=== PATIENT | male | born 1950 | race Caucasian/White ===

== ENCOUNTER 2016-09-03 17:38 | Emergency (ER) | payer BC, MEDICARE ==
[2016-09-03] MEDS ORDERED: Lidocaine 2% Viscous Solution 15 ML Cup PO ONE (17:44)
[2016-09-03 17:48] VITALS: BP 148/92
--- NOTE | 2016-09-03 18:21 | EDM.PDOC ---
ED HPI GENERAL MEDICAL PROBLEM - General Chief Complaint: Laceration Stated Complaint: abrasion to left pinky Time Seen by Provider: 09/03/16 17:38 - History of Present Illness INITIAL COMMENTS - FREE TEXT/NARRATIVE: Patient present with a crinder injury of an already amputated fifth finger nub of the left hand. Onset: Today, Sudden Duration: Minutes: Location: Reports: Lower Extremity, Left Quality: Reports: Burning Severity: Moderate - Related Data Allergies Allergy/AdvReac Type Severity Reaction Status Date / Time No Known Allergies Allergy Verified 09/03/16 17:50 Home Meds: Home Meds Celecoxib [CeleBREX] 200 mg PO DAILY 05/12/13 [History] DULoxetine [Cymbalta] 60 mg PO DAILY 05/12/13 [History] Omeprazole [priLOSEC OTC] 20 mg PO DAILY PRN 05/12/13 [History] Pravastatin [Pravachol] 80 mg PO BEDTIME 08/30/14 [History] metFORMIN [Glucophage] 500 mg PO DAILY 08/30/14 [History] Tamsulosin HCl [Flomax] 0.4 mg PO DAILY 09/03/16 [History] Venlafaxine [Effexor XR] 150 mg PO DAILY 09/03/16 [History] Past Medical History Cardiovascular History: Reports: High Cholesterol Gastrointestinal History: Reports: GERD Genitourinary History: Reports: BPH Musculoskeletal History: Reports: Arthritis Neurological History: Reports: CVA, TIA Psychiatric History: Reports: Depression Endocrine/Metabolic History: Reports: Diabetes, Type II - Past Surgical History GI Surgical History: Reports: Cholecystectomy Other Musculoskeletal Surgeries/Procedures:: Finger tip amputation Social & Family History - Tobacco Use Smoking Status *Q: Never Smoker - Alcohol Use Days Per Week of Alcohol Use: 1 Number of Drinks Per Day: 0 Total Drinks Per Week: 0 - Recreational Drug Use Recreational Drug Use: No ED ROS GENERAL - Review of Systems Review Of Systems: ROS reveals no pertinent complaints other than HPI. ED EXAM, SKIN/RASH Exam: See Below Text/Narrative:: nub of 5th finger of left hand with deep abrasion noted. General Appearance: Alert, WD/WN Ears: Normal External Exam Nose: Normal Inspection Head: Atraumatic Neck: Normal Inspection Respiratory/Chest: No Respiratory Distress Cardiovascular: Normal Peripheral Pulses GI/Abdominal: Normal Bowel Sounds Rectal (Males) Exam: Normal Exam Back Exam: Normal Inspection Extremities: Normal Inspection Neurological: Alert Skin: Warm, Dry Front/Back Body Diagram: 1 - 5th finger left hand Course - Vital Signs Last Recorded V/S: Last Vital Signs Temp 97.0 F 09/03/16 17:45 Pulse 66 09/03/16 17:45 Resp 20 09/03/16 17:45 BP 148/92 H 09/03/16 17:45 Pulse Ox 97 09/03/16 17:45 - Orders/Labs/Meds Meds: Medications Discontinued Medications Generic Name Dose Route Start Last Admin Trade Name Martin PRN Reason Stop Dose Admin Lidocaine HCl 15 ml 09/03/16 17:44 09/03/16 17:52 Xylocaine 2% Viscous PO 09/03/16 17:45 15 ml ONETIME ONE Administration Departure - Departure Time of Disposition: 18:21 (hand and wound cleanded thoroughly removing all debre, wound dressed with xeroform guaze, telfa and coban. tolerated well with no complications. W0und care instruction given with verbal understanding demonstrated.) Disposition: Home, Self-Care 01 Condition: Good Clinical Impression: Abrasion - Discharge Information Instructions: Laceration Care, Adult, [id number] Forms: ED Department Discharge Additional Instructions: Keep wound clean, watch for signs of infection.
== END 2016-09-03 18:30 | disposition home or self-care (01) ==
LOC: CC.ED 17:38
DX: S60.417A Abrasion of left little finger, initial encounter (principal); M19.90 Unspecified osteoarthritis, unspecified site; E78.00 Pure hypercholesterolemia, unspecified; E11.9 Type 2 diabetes mellitus without complications; F32.9 Major depressive disorder, single episode, unspecified; Z79.899 Other long term (current) drug therapy; K21.9 Gastro-esophageal reflux disease without esophagitis; Z86.73 Personal history of transient ischemic attack (TIA), and cerebral infarction without residual deficits; Z90.49 Acquired absence of other specified parts of digestive tract; Z79.84 Long term (current) use of oral hypoglycemic drugs; W31.89XA Contact with other specified machinery, initial encounter
CPT/HCPCS: 99282; A9270

== ENCOUNTER → 2018-06-27 | Day surgery (SDC) | payer MEDICARE, BC ==
[~2018-06-27] MED LIST: Lactated Ringers 1,000 ML IV SCH; Propofol 200 MG/20 ML SDV IV ONE
[2018-06-27 09:40] VITALS: BP 150/83
--- NOTE | 2018-06-27 11:45 | OR ---
DATE OF OPERATION: 06/27/2018 PREOPERATIVE DIAGNOSIS: FAMILY HISTORY OF COLON CANCER. POSTOPERATIVE DIAGNOSIS: FAMILY HISTORY OF COLON CANCER. SURGEON: Robert Patino MD PROCEDURE: FULL-LENGTH COLONOSCOPY WITH FORCEPS POLYP REMOVAL X2. ANESTHESIA: MAC via LUBRICATOR GRANULATOR. COMPLICATIONS: None. SPECIMEN: Two small sessile polyps, less than 3 mm. FINDINGS: 1. Full-length colonoscopy. 2. [id number] sigmoid diverticulosis. 3. Sessile polyps x2, both less than 3 mm. RECOMMENDATIONS: Followup colonoscopy in 5 years. INDICATIONS: The patient had a brother who passed from colon cancer. He is due for a 5-year scope. DESCRIPTION OF PROCEDURE: The patient was prepped and draped, placed in the left lateral decubitus position. A lubricated Olympus colonoscope was inserted and easily advanced to the cecum. Direct visualization of the ileocecal valve and appendiceal orifice was accomplished. The bowel prep was fine. Upon withdrawal of the scope, just outside the cecal pouch, the patient had a small sessile polyp about 2 to 3 mm in size. It was removed in its entirety with 2 cold forceps biopsies. The rest of the ascending and transverse colon were benign. In the left colon, the patient had sigmoid diverticulosis extending all the way to the rectosigmoid junction, mild to moderate in severity, there was no inflammatory change. A 2nd small sessile polyp was found around 45 cm, also removed with 2 cold forceps biopsies in its entirety. No other polyps, masses, ulceration, or bleeding sites were seen. No vascular abnormalities. The rectal vault was benign. Retroflexion of scope showed no perianal lesions. Air was suctioned, scope removed without complication. CLIF/CASSI /[id number]
== END ==
LOC: CC.SDS 07:29
PROVIDERS: ATTEND Family Medicine
DX: Z12.11 Encounter for screening for malignant neoplasm of colon (principal); K57.30 Diverticulosis of large intestine without perforation or abscess without bleeding; K63.5 Polyp of colon; K21.9 Gastro-esophageal reflux disease without esophagitis; E11.9 Type 2 diabetes mellitus without complications; E78.00 Pure hypercholesterolemia, unspecified; F32.9 Major depressive disorder, single episode, unspecified; H35.00 Unspecified background retinopathy; M19.90 Unspecified osteoarthritis, unspecified site; N40.0 Benign prostatic hyperplasia without lower urinary tract symptoms; Z86.73 Personal history of transient ischemic attack (TIA), and cerebral infarction without residual deficits; Z80.0 Family history of malignant neoplasm of digestive organs; Z79.1 Long term (current) use of non-steroidal anti-inflammatories (NSAID); Z79.84 Long term (current) use of oral hypoglycemic drugs; Z79.899 Other long term (current) drug therapy
CPT/HCPCS: J2704; J7120

== ENCOUNTER 2019-01-27 06:50 | Emergency (ER) | payer MEDICARE, BC ==
[2019-01-27] MEDS ORDERED: fentaNYL 100 MCG/2 ML SDV IVPUSH ONE ×2 (07:26→08:20)
[2019-01-27] MEDS ORDERED: Ondansetron 4 MG/2 ML SDV IVPUSH PRN (07:40)
[2019-01-27] MEDS ORDERED: Iopamidol 755 Mg/ML 100 ML Bottle IVPUSH ONE (07:42)
[2019-01-27] MEDS ORDERED: Sodium Chloride 0.9% 1,000 ML IV SCH (07:45)
[2019-01-27 07:50] LABS: CHLORIDE,CL 106 mEq/L (98-106); SODIUM,NA 141 mEq/L (136-145)
[2019-01-27 08:20] VITALS: PULSE 65
[2019-01-27] MEDS ORDERED: Ketorolac 30 MG/ML SDV IVPUSH ONE (08:48)
--- NOTE | 2019-01-27 09:49 | EDM.PDOC ---
ED HPI GENERAL MEDICAL PROBLEM - General Chief Complaint: Abdominal Pain Stated Complaint: ABD PAIN Time Seen by Provider: 01/27/19 07:10 Source of Information: Reports: Patient History Limitations: Reports: No Limitations - History of Present Illness INITIAL COMMENTS - FREE TEXT/NARRATIVE: Erik is a 69 yo male who presents to the ED this morning, brought in by his son, with concerns of right lower quadrant abdominal pain. He states the pain started around 2:00am this morning and doesn't seem to let up. States he has been nauseated but no vomiting. Admits to eating a normal meal last night and didn't have any discomfort before going to bed. Was woke up to the pain. States he did have a normal bowel movement this morning. Denies any constipation or diarrhea. Admits to frequent urination but has been dealing with this for some time now. States he is on two medications for his prostate. He denies any fevers. No flank pain. Location: Reports: Abdomen Associated Symptoms: Reports: Nausea/Vomiting Right Lower Abdominal Pain Score (Numeric/FACES): 5 - Related Data Allergies Allergy/AdvReac Type Severity Reaction Status Date / Time No Known Allergies Allergy Verified 01/27/19 07:26 Home Meds: Home Meds Celecoxib [CeleBREX] 200 mg PO DAILY 05/12/13 [History] DULoxetine [Cymbalta] 60 mg PO DAILY 05/12/13 [History] Omeprazole [priLOSEC OTC] 20 mg PO DAILY PRN 05/12/13 [History] Pravastatin [Pravachol] 80 mg PO BEDTIME 08/30/14 [History] Tamsulosin HCl [Flomax] 0.4 mg PO DAILY 09/03/16 [History] Venlafaxine [Effexor XR] 150 mg PO DAILY 09/03/16 [History] metFORMIN [Glucophage XR] 750 mg PO DAILY 06/21/18 [History] Hydrocodone/Acetaminophen [Pledger 5-325 Tablet] 1 each PO Q4H PRN #20 tablet 05/13 [Rx] Ketorolac [Toradol] 10 mg PO TID PRN #15 tab 01/27/19 [Rx] Ondansetron [Zofran ODT] 4 mg PO Q6H PRN #12 tab.dis 01/27/19 [Rx] Past Medical History Cardiovascular History: Reports: High Cholesterol Gastrointestinal History: Reports: GERD Genitourinary History: Reports: BPH Musculoskeletal History: Reports: Arthritis Neurological History: Reports: CVA, TIA Psychiatric History: Reports: Depression Endocrine/Metabolic History: Reports: Diabetes, Type II - Past Surgical History GI Surgical History: Reports: Cholecystectomy Other Musculoskeletal Surgeries/Procedures:: Finger tip amputation Social & Family History - Tobacco Use Smoking Status *Q: Never Smoker - Caffeine Use Caffeine Use: Reports: Soda - Recreational Drug Use Recreational Drug Use: No ED ROS GENERAL - Review of Systems Review Of Systems: See Below Constitutional: Denies: Fever, Chills, Decreased Appetite HEENT: Reports: No Symptoms Respiratory: Reports: No Symptoms Cardiovascular: Reports: No Symptoms GI/Abdominal: Reports: Abdominal Pain (RLQ), Nausea. Denies: Bloody Stool, Constipation, Diarrhea, Vomiting : Denies: Flank Pain, Hematuria, Pain Musculoskeletal: Reports: No Symptoms Skin: Reports: No Symptoms Neurological: Reports: No Symptoms ED EXAM, GI/ABD - Physical Exam Exam: See Below Exam Limited By: No Limitations General Appearance: Alert, WD/WN, No Apparent Distress Ears: Normal External Exam, Normal Canal, Normal TMs Nose: Normal Inspection, Normal Mucosa, No Blood Throat/Mouth: Normal Inspection, Normal Lips, Normal Gums, Normal Oropharynx, No Airway Compromise Head: Atraumatic, Normocephalic Neck: Normal Inspection, Supple Respiratory/Chest: No Respiratory Distress, Lungs Clear, Normal Breath Sounds, No Accessory Muscle Use Cardiovascular: Regular Rate, Rhythm, No Edema, No Murmur GI/Abdominal Exam: No Organomegaly, Tender (RLQ), Abnormal Bowel Sounds ( hypoactive). No: Guarding, Rigid Extremities: Normal Inspection, No Pedal Edema Neurological: Alert, Oriented Psychiatric: Normal Affect, Normal Mood Skin Exam: Warm, Dry, Intact, Normal Color, No Rash Course - Vital Signs Last Recorded V/S: Last Vital Signs Temp 96.4 F 01/27/19 08:19 Pulse 65 01/27/19 08:19 Resp 18 01/27/19 08:19 BP 171/93 H 01/27/19 08:19 Pulse Ox 95 01/27/19 08:19 - Orders/Labs/Meds Orders: Active Orders 24 hr Category Date Time Status EKG Documentation Completion [RC] STAT Care 01/27/19 07:08 Active Abdomen Pelvis w Cont [CT] Stat Exams 01/27/19 07:38 Taken Ondansetron [Zofran] Med 01/27/19 07:40 Active 4 mg IVPUSH Q6H PRN Sodium Chloride 0.9% [Normal Saline] 1,000 ml Med 01/27/19 07:45 Active IV ASDIRECTED Medication Orders Sodium Chloride (Normal Saline) 1,000 mls @ 999 mls/hr IV ASDIRECTED BAHMAN Last Admin: 01/27/19 07:47 Dose: 999 mls/hr Ondansetron HCl (Zofran) 4 mg IVPUSH Q6H PRN PRN Reason: Nausea/Vomiting Last Admin: 01/27/19 07:47 Dose: 4 mg Labs: Laboratory Tests 01/27/19 01/27/19 01/27/19 Range/Units 07:08 07:08 07:08 WBC 7.3 (5.0-10.0) 10^3/uL RBC 4.80 (4.50-6.00) 10^6/uL Hgb 15.4 (14.0-18.0) g/dL Hct 44.8 (40.0-54.0) % MCV 93.3 (82.0-94.0) fL MCH 32.1 H (27.0-32.0) pg MCHC 34.4 (33.0-38.0) g/dL RDW Coeff of Liliana 12.9 (11.0-15.0) % Plt Count 200 (150-400) 10^3/uL Neut % (Auto) 80.4 (35-85) % Lymph % (Auto) 13.8 (10-55) % Rains % (Auto) 4.4 (0-16) % Eos % (Auto) 1.1 (0-5) % Baso % (Auto) 0.3 (0-3) % Neut # (Auto) 5.90 (1.80-7.00) 10^3/uL Lymph # (Auto) 1.01 (1.00-4.80) 10^3/uL Rains # (Auto) 0.32 (0.00-0.80) 10^3/uL Eos # (Auto) 0.08 (0.00-0.45) 10^3/uL Baso # (Auto) 0.02 10^3/uL Sodium 141 (136-145) mEq/L Potassium 4.0 (3.5-5.0) mEq/L Chloride 106 (98-106) mEq/L Carbon Dioxide 21 (21-32) mmol/L BUN 19 H (7-18) mg/dL Creatinine 1.4 H (0.7-1.3) mg/dL Est Cr Clr Drug Dosing 55.43 mL/min Estimated GFR (MDRD) 50 L (>=60) mL/min Glucose 230 H D (75-99) mg/dL Lactic Acid 2.0 (0.4-2.0) mmol/L Calcium 8.7 (8.4-10.1) mg/dL Total Bilirubin 0.5 (0.0-1.0) mg/dL AST 23 (15-37) U/L ALT 32 (12-78) U/L Alkaline Phosphatase 82 (46-116) U/L C-Reactive Protein < 0.2 L (0.2-0.8) mg/dL Total Protein 7.3 (6.4-8.2) g/dL Albumin 3.7 (3.4-5.0) g/dL Amylase 39 (25-115) U/L Lipase 125 (73-393) U/L Urine Color (YELLOW) Urine Appearance (CLEAR) Urine pH (4.5-8.0) Ur Specific [place] (1.003-1.020) Urine Protein (NEGATIVE) mg/dL Urine Glucose (UA) (NEGATIVE) mg/dL Urine Ketones (NEGATIVE) mg/dL Urine Occult Blood (NEGATIVE) Urine Nitrite (NEGATIVE) Urine Bilirubin (NEGATIVE) Urine Urobilinogen (0.2-1.0) EU/dL Ur Leukocyte Esterase (NEGATIVE) Urine RBC (0-5) /HPF Urine WBC (0-5) /HPF 01/27/19 Range/Units 08:12 WBC (5.0-10.0) 10^3/uL RBC (4.50-6.00) 10^6/uL Hgb (14.0-18.0) g/dL Hct (40.0-54.0) % MCV (82.0-94.0) fL MCH (27.0-32.0) pg MCHC (33.0-38.0) g/dL RDW Coeff of Liliana (11.0-15.0) % Plt Count (150-400) 10^3/uL Neut % (Auto) (35-85) % Lymph % (Auto) (10-55) % Rains % (Auto) (0-16) % Eos % (Auto) (0-5) % Baso % (Auto) (0-3) % Neut # (Auto) (1.80-7.00) 10^3/uL Lymph # (Auto) (1.00-4.80) 10^3/uL Rains # (Auto) (0.00-0.80) 10^3/uL Eos # (Auto) (0.00-0.45) 10^3/uL Baso # (Auto) 10^3/uL Sodium (136-145) mEq/L Potassium (3.5-5.0) mEq/L Chloride (98-106) mEq/L Carbon Dioxide (21-32) mmol/L BUN (7-18) mg/dL Creatinine (0.7-1.3) mg/dL Est Cr Clr Drug Dosing mL/min Estimated GFR (MDRD) (>=60) mL/min Glucose (75-99) mg/dL Lactic Acid (0.4-2.0) mmol/L Calcium (8.4-10.1) mg/dL Total Bilirubin (0.0-1.0) mg/dL AST (15-37) U/L ALT (12-78) U/L Alkaline Phosphatase (46-116) U/L C-Reactive Protein (0.2-0.8) mg/dL Total Protein (6.4-8.2) g/dL Albumin (3.4-5.0) g/dL Amylase (25-115) U/L Lipase (73-393) U/L Urine Color Yellow (YELLOW) Urine Appearance Clear (CLEAR) Urine pH 6.0 (4.5-8.0) Ur Specific [place] 1.015 (1.003-1.020) Urine Protein Negative (NEGATIVE) mg/dL Urine Glucose (UA) Negative (NEGATIVE) mg/dL Urine Ketones Negative (NEGATIVE) mg/dL Urine Occult Blood Trace-intact H (NEGATIVE) Urine Nitrite Negative (NEGATIVE) Urine Bilirubin Negative (NEGATIVE) Urine Urobilinogen 0.2 (0.2-1.0) EU/dL Ur Leukocyte Esterase Negative (NEGATIVE) Urine RBC 0-5 (0-5) /HPF Urine WBC Not seen (0-5) /HPF Meds: Medications Generic Name Dose Route Start Last Admin Trade Name Freq PRN Reason Stop Dose Admin Sodium Chloride 1,000 mls @ 999 mls/hr 01/27/19 07:45 01/27/19 07:47 Normal Saline IV 999 mls/hr ASDIRECTED BAHMAN Administration Ondansetron HCl 4 mg 01/27/19 07:40 01/27/19 07:47 Zofran IVPUSH 4 mg Q6H PRN Administration Nausea/Vomiting Discontinued Medications Generic Name Dose Route Start Last Admin Trade Name Freq PRN Reason Stop Dose Admin Fentanyl 50 mcg 01/27/19 07:26 01/27/19 07:30 Sublimaze IVPUSH 01/27/19 07:27 50 mcg ONETIME ONE Administration Iopamidol 100 ml 01/27/19 07:42 01/27/19 08:07 [id number] (76%) IVPUSH 01/27/19 07:43 100 ml ONETIME ONE Administration Ketorolac Tromethamine 30 mg 01/27/19 08:48 01/27/19 08:58 Toradol IVPUSH 01/27/19 08:49 30 mg ONETIME ONE Administration Departure - Departure Time of Disposition: 09:51 Disposition: Home, Self-Care 01 Clinical Impression: Kidney stone on right side, Elevated blood pressure reading - Discharge Information Prescriptions: Hydrocodone/Acetaminophen [Pledger 5-325 Tablet] 1 each PO Q4H PRN #20 tablet PRN Reason: Pain Ketorolac [Toradol] 10 mg PO TID PRN #15 tab PRN Reason: Pain Ondansetron [Zofran ODT] 4 mg PO Q6H PRN #12 tab.dis PRN Reason: Nausea Instructions: Kidney Stones Referrals: Robert Patino MD [Primary Care Provider] - Forms: ED Department Discharge Additional Instructions: 1) Pledger 5/325 - 1 tablet every 4 hours as needed for break thru pain 2) Toradol 10mg - 1 tablet every 8 hours for pain. Hold Celebrex if taking Toradol. 3) Zofran 4mg ODT - 1 tablet every 4 hours as needed for nausea 4) Continue with Flomax from normal prescription 5) May strain urine 6) If any fevers, pain worsens or any concerns at all, advise returning for reevaluation. 7) Advise seeing Dr. Patino for recheck blood pressure and follow up this week. - Problem List & Annotations (1) Kidney stone on right side SNOMED Code(s): 21974668 Code(s): N20.0 - CALCULUS OF KIDNEY Status: Acute Current Visit: Yes (2) Elevated blood pressure reading SNOMED Code(s): 35345572 Code(s): R03.0 - ELEVATED BLOOD-PRESSURE READING, W/O DIAGNOSIS OF HTN Status: Acute Current Visit: Yes - My Orders Last 24 Hours: My Active Orders 01/27/19 07:08 EKG Documentation Completion [RC] STAT 01/27/19 07:38 Abdomen Pelvis w Cont [CT] Stat 01/27/19 07:40 Ondansetron [Zofran] 4 mg IVPUSH Q6H PRN 01/27/19 07:45 Sodium Chloride 0.9% [Normal Saline] 1,000 ml IV ASDIRECTED - Assessment/Plan Last 24 Hours: My Active Orders 01/27/19 07:08 EKG Documentation Completion [RC] STAT 01/27/19 07:38 Abdomen Pelvis w Cont [CT] Stat 01/27/19 07:40 Ondansetron [Zofran] 4 mg IVPUSH Q6H PRN 01/27/19 07:45 Sodium Chloride 0.9% [Normal Saline] 1,000 ml IV ASDIRECTED Plan: CT of the abdomen/pelvis did show a small kidney stone on the right side with mild hydronephrosis. Appendix was unremarkable. Will discharge home with medications and instructions. If unable to pass stone X 2 weeks, advise returning to primary provider. Needs to see primary provider for recheck blood pressure this week. Blood pressure on discharge was 151/84.
[2019-01-27 10:06] VITALS: BP 151/84
== END 2019-01-27 10:18 | disposition home or self-care (01) ==
LOC: CC.ED 06:50
DX: N13.2 Hydronephrosis with renal and ureteral calculous obstruction (principal); R03.0 Elevated blood-pressure reading, without diagnosis of hypertension; E78.00 Pure hypercholesterolemia, unspecified; K21.9 Gastro-esophageal reflux disease without esophagitis; Z86.73 Personal history of transient ischemic attack (TIA), and cerebral infarction without residual deficits; E11.9 Type 2 diabetes mellitus without complications; F32.9 Major depressive disorder, single episode, unspecified; Z79.84 Long term (current) use of oral hypoglycemic drugs; Z79.899 Other long term (current) drug therapy
CPT/HCPCS: 36415; 74177; 80053; 81001; 82150; 83605; 83690; 85025; 86140; 93005; 96361; 96374; 96375; 99284; 99284-25; J1885; J2405; J3010; J7030; Q9967

== ENCOUNTER 2019-12-31 21:19 | Emergency (ER) | payer MEDICARE, BC ==
--- NOTE | 2019-12-31 21:52 | EDM.PDOC ---
ED HPI GENERAL MEDICAL PROBLEM - General Chief Complaint: General Stated Complaint: dizzy Time Seen by Provider: 12/31/19 21:40 Source of Information: Reports: Patient History Limitations: Reports: No Limitations - History of Present Illness INITIAL COMMENTS - FREE TEXT/NARRATIVE: Fco is a 69 yo male who presents to the ED via private vehicle with c/o dizziness. He reports this evening, about 1 hr prior to arrival, he had a spell where everything was spinning. He reports it "felt like a real good drunk." He reports he was unable to find a wall and he fell flat on his butt. He got concerned as prior to his last stroke he had similar issues. He reports dizziness has improved. He was able to ambulate into ED. He reports when he is lying still, he feels good, but when he tries to get up, he feels like everything is spinning. He reports he did have emesis x1 on the way in. He denies any confusion, chest pain, shortness of breath, syncopal episodes, diarrhea, cough, congestion, or fevers. Denies any urgency or dysuria, but does report nocturia, which has bothered him for years. Did have a stroke 5-6 years ago. Feels like this dizziness "has been coming on for the last week or so." Reports his BP is usually good. BP is elevated in ED. 179/98 upon arrival. Onset: Today, Sudden Associated Symptoms: Reports: Nausea/Vomiting. Denies: Confusion, Chest Pain, Cough, cough w sputum, Diaphoresis, Fever/Chills, Headaches, Loss of Appetite, Malaise, Rash, Seizure, Shortness of Breath, Syncope, Weakness - Related Data Allergies Allergy/AdvReac Type Severity Reaction Status Date / Time No Known Allergies Allergy Verified 12/31/19 21:20 Home Meds: Home Meds Celecoxib [CeleBREX] 200 mg PO DAILY 05/12/13 [History] DULoxetine [Cymbalta] 60 mg PO DAILY 05/12/13 [History] Omeprazole [priLOSEC OTC] 20 mg PO DAILY PRN 05/12/13 [History] Pravastatin [Pravachol] 80 mg PO BEDTIME 08/30/14 [History] Tamsulosin HCl [Flomax] 0.4 mg PO DAILY 09/03/16 [History] Venlafaxine [Effexor XR] 150 mg PO DAILY 09/03/16 [History] metFORMIN [Glucophage XR] 750 mg PO DAILY 06/21/18 [History] Hydrocodone/Acetaminophen [[place] 5-325 Tablet] 1 each PO Q4H PRN #20 tablet 01/27/19 [Rx] Ketorolac [Toradol] 10 mg PO TID PRN #15 tab 01/27/19 [Rx] Ondansetron [Zofran ODT] 4 mg PO Q6H PRN #12 tab.dis 01/27/19 [Rx] Meclizine [Antivert] 12.5 - 25 mg PO TID PRN #20 tab 12/31/19 [Rx] Ondansetron [Zofran ODT] 4 mg PO Q6H PRN #20 tab.dis 12/31/19 [Rx] Past Medical History Cardiovascular History: Reports: High Cholesterol Gastrointestinal History: Reports: GERD Genitourinary History: Reports: BPH Musculoskeletal History: Reports: Arthritis Neurological History: Reports: CVA, TIA Psychiatric History: Reports: Depression Endocrine/Metabolic History: Reports: Diabetes, Type II - Past Surgical History GI Surgical History: Reports: Cholecystectomy Other Musculoskeletal Surgeries/Procedures:: Finger tip amputation Social & Family History - Caffeine Use Caffeine Use: Reports: Soda ED ROS GENERAL - Review of Systems Review Of Systems: Comprehensive ROS is negative, except as noted in HPI. ED EXAM, GENERAL - Physical Exam Exam: See Below Exam Limited By: No Limitations General Appearance: Alert, WD/WN, No Apparent Distress Eye Exam: Bilateral Eye: EOMI, PERRL Head: Atraumatic, Normocephalic Neck: Normal Inspection, Supple, Non-Tender, Full Range of Motion Respiratory/Chest: No Respiratory Distress, Lungs Clear, Normal Breath Sounds, No Accessory Muscle Use, Chest Non-Tender Cardiovascular: Normal Peripheral Pulses, Regular Rate, Rhythm, No Edema, No Gallop, No JVD, No Murmur, No Rub GI/Abdominal: Normal Bowel Sounds, Soft, Non-Tender, No Organomegaly, No Distention, No Abnormal Bruit, No Mass Extremities: Normal Inspection, Normal Range of Motion, Non-Tender, No Pedal Jason ma, Normal Capillary Refill, Other (missing digits) Neurological: Alert, Oriented, CN II-XII Intact, Normal Cognition, Normal Gait (slightly unsteady), No Motor/Sensory Deficits Psychiatric: Normal Affect, Normal Mood Skin Exam: Warm, Dry, Intact, Normal Color, No Rash #1 Interpretation EKG Date: 12/31/19 Time: 21:52 Rhythm: NSR [place]: Normal P-Wave: Present QRS: Normal ST-T: Normal QT: Normal Comparison: No Change Course - Vital Signs Last Recorded V/S: Last Vital Signs Temp 98 F 12/31/19 22:03 Pulse 62 12/31/19 22:08 Resp 18 12/31/19 22:03 BP 165/87 H 12/31/19 22:22 Pulse Ox 96 12/31/19 22:03 - Orders/Labs/Meds Orders: Active Orders 24 hr Category Date Time Status Head wo Cont [CT] Stat Exams 12/31/19 21:37 Taken Labs: Laboratory Tests 12/31/19 12/31/19 12/31/19 Range/Units 21:50 21:50 21:50 WBC 7.7 (5.0-10.0) 10^3/uL RBC 4.71 (4.50-6.00) 10^6/uL Hgb 15.0 (14.0-18.0) g/dL Hct 43.9 (40.0-54.0) % MCV 93.2 (82.0-94.0) fL MCH 31.8 (27.0-32.0) pg MCHC 34.2 (33.0-38.0) g/dL RDW Coeff of Liliana 12.7 (11.0-15.0) % Plt Count 191 (150-400) 10^3/uL Neut % (Auto) 56.0 (35-85) % Lymph % (Auto) 31.4 (10-55) % Clay % (Auto) 9.7 (0-16) % Eos % (Auto) 2.6 (0-5) % Baso % (Auto) 0.3 (0-3) % Neut # (Auto) 4.31 (1.80-7.00) 10^3/uL Lymph # (Auto) 2.42 (1.00-4.80) 10^3/uL Clay # (Auto) 0.75 (0.00-0.80) 10^3/uL Eos # (Auto) 0.20 (0.00-0.45) 10^3/uL Baso # (Auto) 0.02 10^3/uL PT 9.8 (9.7-12.3) SEC INR 0.97 (0.92-1.18) APTT 22.5 L (23.2-32.3) SEC Sodium 138 (136-145) mEq/L Potassium 4.1 (3.5-5.0) mEq/L Chloride 103 (98-106) mEq/L Carbon Dioxide 26 (21-32) mmol/L BUN 21 H (7-18) mg/dL Creatinine 1.3 (0.7-1.3) mg/dL Est Cr Clr Drug Dosing TNP Estimated GFR (MDRD) 55 L (>=60) mL/min Glucose 215 H (75-99) mg/dL Calcium 8.9 (8.4-10.1) mg/dL Total Bilirubin 0.4 (0.0-1.0) mg/dL AST 25 (15-37) U/L ALT 35 (12-78) U/L Alkaline Phosphatase 84 (46-116) U/L Lactate Dehydrogenase 189 (100-190) U/L Creatine Kinase 381 H (35-232) U/L Troponin I < 0.017 (0.00-0.06) ng/mL C-Reactive Protein 0.4 (0.2-0.8) mg/dL Total Protein 7.3 (6.4-8.2) g/dL Albumin 3.6 (3.4-5.0) g/dL Urine Color (YELLOW) Urine Appearance (CLEAR) Urine pH (4.5-8.0) Ur Specific [place] (1.003-1.020) Urine Protein (NEGATIVE) mg/dL Urine Glucose (UA) (NEGATIVE) mg/dL Urine Ketones (NEGATIVE) mg/dL Urine Occult Blood (NEGATIVE) Urine Nitrite (NEGATIVE) Urine Bilirubin (NEGATIVE) Urine Urobilinogen (0.2-1.0) EU/dL Ur Leukocyte Esterase (NEGATIVE) SARS CoV-2 RNA Rapid DIAMOND (NEGATIVE) 12/31/19 12/31/19 Range/Units 21:50 22:08 WBC (5.0-10.0) 10^3/uL RBC (4.50-6.00) 10^6/uL Hgb (14.0-18.0) g/dL Hct (40.0-54.0) % MCV (82.0-94.0) fL MCH (27.0-32.0) pg MCHC (33.0-38.0) g/dL RDW Coeff of Liliana (11.0-15.0) % Plt Count (150-400) 10^3/uL Neut % (Auto) (35-85) % Lymph % (Auto) (10-55) % Clay % (Auto) (0-16) % Eos % (Auto) (0-5) % Baso % (Auto) (0-3) % Neut # (Auto) (1.80-7.00) 10^3/uL Lymph # (Auto) (1.00-4.80) 10^3/uL Clay # (Auto) (0.00-0.80) 10^3/uL Eos # (Auto) (0.00-0.45) 10^3/uL Baso # (Auto) 10^3/uL PT (9.7-12.3) SEC INR (0.92-1.18) APTT (23.2-32.3) SEC Sodium (136-145) mEq/L Potassium (3.5-5.0) mEq/L Chloride (98-106) mEq/L Carbon Dioxide (21-32) mmol/L BUN (7-18) mg/dL Creatinine (0.7-1.3) mg/dL Est Cr Clr Drug Dosing Estimated GFR (MDRD) (>=60) mL/min Glucose (75-99) mg/dL Calcium (8.4-10.1) mg/dL Total Bilirubin (0.0-1.0) mg/dL AST (15-37) U/L ALT (12-78) U/L Alkaline Phosphatase (46-116) U/L Lactate Dehydrogenase (100-190) U/L Creatine Kinase (35-232) U/L Troponin I (0.00-0.06) ng/mL C-Reactive Protein (0.2-0.8) mg/dL Total Protein (6.4-8.2) g/dL Albumin (3.4-5.0) g/dL Urine Color Yellow (YELLOW) Urine Appearance Clear (CLEAR) Urine pH 5.5 (4.5-8.0) Ur Specific [place] >= 1.030 H (1.003-1.020) Urine Protein Negative (NEGATIVE) mg/dL Urine Glucose (UA) 100 H (NEGATIVE) mg/dL Urine Ketones Negative (NEGATIVE) mg/dL Urine Occult Blood Negative (NEGATIVE) Urine Nitrite Negative (NEGATIVE) Urine Bilirubin Negative (NEGATIVE) Urine Urobilinogen 0.2 (0.2-1.0) EU/dL Ur Leukocyte Esterase Negative (NEGATIVE) SARS CoV-2 RNA Rapid DIAMOND Negative (NEGATIVE) Meds: Medications Discontinued Medications Generic Name Dose Route Start Last Admin Trade Name Freq PRN Reason Stop Dose Admin Hydralazine HCl 20 mg 12/31/19 22:13 12/31/19 22:23 Apresoline IVPUSH 12/31/19 22:14 20 mg ONETIME ONE Administration Departure - Departure Time of Disposition: 22:43 Disposition: Home, Self-Care 01 Condition: Good Clinical Impression: Vertigo, Elevated blood pressure reading, Hypertension - Discharge Information *PRESCRIPTION DRUG MONITORING PROGRAM REVIEWED*: Not Applicable *COPY OF PRESCRIPTION DRUG MONITORING REPORT IN PATIENT KIT: Not Applicable Instructions: Hypertension, Adult, [id number], Dizziness, [id number] Forms: ED Department Discharge Additional Instructions: - Meclizine 1-2 tablets every 6 hours as needed for dizziness - Zofran 1 tablet every 6 hours as needed for nausea/vomiting - Additional meds can be picked up at pharmacy in the morning - Avoid turning head as much as able - Try to sleep upright tonight if able - Rest and push fluids - If dizziness persists, recommend calling physical therapy in the morning for appointment - Recommend f/u Saturday with Dr. Patino to recheck blood pressure Sepsis Event Note (ED) - Focused Exam Vital Signs: Vital Signs Temp Pulse Resp BP Pulse Ox 12/31/19 22:22 165/87 H 12/31/19 22:14 172/95 H 12/31/19 22:08 62 152/99 H 12/31/19 22:03 98 F 64 18 179/98 H 96 - Problem List & Annotations (1) Vertigo SNOMED Code(s): 344711623 Code(s): R42 - DIZZINESS AND GIDDINESS Status: Acute (2) Hypertension SNOMED Code(s): 07004650 Code(s): I10 - ESSENTIAL (PRIMARY) HYPERTENSION Status: Acute Qualifiers: Hypertension type: unspecified Qualified Code(s): I10 - Essential (primary) hypertension - Problem List Review Problem List Initiated/Reviewed/Updated: No - My Orders Last 24 Hours: My Active Orders 12/31/19 21:37 Head wo Cont [CT] Stat - Assessment/Plan Last 24 Hours: My Active Orders 12/31/19 21:37 Head wo Cont [CT] Stat Assessment:: Vertigo Hypertension Plan: 69 yo male presents to the ED with c/o dizziness and unsteadiness. Reports he has felt it come on gradually over the last week but had an episode this evening where he was looking at mail, attempted to get up from the table, and felt as though everything was spinning. He reports he was unable to find the wall and fell down. Does have hx of CVA. He did have emesis enroute to ED. Labs unremarkable. EKG NSR without changes from previous. Head CT negative for acute changes. BP was elevated to 170s/90s upon arrival. Did gradually improve throughout stay. Was given 20 mg hydralazine IVP. BP improved to 128/69. Patient will be discharged home with meclizine and zofran to use as needed. He is advised to follow up with PCP Dr. Patino Saturday for recheck BP. Return to Ed for emergent needs.
[2019-12-31 22:03] LABS: CHLORIDE,CL 103 mEq/L (98-106); PTT,PARTIAL THROMBOPLSTIN TIME 22.5 SEC (23.2-32.3); SODIUM,NA 138 mEq/L (136-145)
[2019-12-31] MEDS: hydrALAZINE 20 MG/ML SDV IVPUSH ONE (22:23)
[2019-12-31] MEDS ORDERED: Ondansetron 4 MG Tab.DIS ONE (22:34)
[2019-12-31] MEDS ORDERED: Meclizine 12.5 MG Tab ONE ×2 (22:34)
[2019-12-31 22:43] VITALS: PULSE 64
[2019-12-31 22:51] VITALS: BP 151/72
[2019-12-31] MEDS: Ondansetron 4 MG Tab.DIS PO ONE (23:09)
[2019-12-31] MEDS: Meclizine 12.5 MG Tab PO ONE (23:14)
[2019-12-31] MEDS: Take Home: Meclizine 12.5 MG Tab, 4 Tab Pack PO ONE (23:14)
[2019-12-31] MEDS: Take Home: Ondansetron 4 MG Tab.DIS, 2 Tab Pack PO ONE (23:14)
[2019-12-31] MEDS: Ondansetron 4 MG Tab.DIS ONE (23:14)
== END 2019-12-31 22:50 | disposition home or self-care (01) ==
LOC: CC.ED 21:19
DX: R42 Dizziness and giddiness (principal); I10 Essential (primary) hypertension; E78.00 Pure hypercholesterolemia, unspecified; K21.9 Gastro-esophageal reflux disease without esophagitis; N40.0 Benign prostatic hyperplasia without lower urinary tract symptoms; M19.90 Unspecified osteoarthritis, unspecified site; F32.9 Major depressive disorder, single episode, unspecified; E11.9 Type 2 diabetes mellitus without complications; Z79.84 Long term (current) use of oral hypoglycemic drugs; Z79.899 Other long term (current) drug therapy; Z86.73 Personal history of transient ischemic attack (TIA), and cerebral infarction without residual deficits; Z20.828 Contact with and (suspected) exposure to other viral communicable diseases
CPT/HCPCS: 36415; 70450; 80053; 81003; 82550; 83615; 84484; 85025; 85610; 85730; 86140; 93005; 96374; 99284; A9270; J0360; U0002

== ENCOUNTER 2021-09-06 19:38 | Emergency (ER) | payer MEDICARE, BC ==
[2021-09-06] MEDS ORDERED: Acetaminophen 325 MG Tab PO ONE (20:00)
[2021-09-06 21:44] VITALS: BP 109/59; PULSE 65
== END 2021-09-06 20:30 | disposition home or self-care (01) ==
LOC: CC.ED 19:38
DX: S70.12XA Contusion of left thigh, initial encounter (principal); S80.12XA Contusion of left lower leg, initial encounter; E78.00 Pure hypercholesterolemia, unspecified; K21.9 Gastro-esophageal reflux disease without esophagitis; N40.0 Benign prostatic hyperplasia without lower urinary tract symptoms; E11.9 Type 2 diabetes mellitus without complications; Z79.899 Other long term (current) drug therapy; Z79.82 Long term (current) use of aspirin; Z79.02 Long term (current) use of antithrombotics/antiplatelets; Z86.73 Personal history of transient ischemic attack (TIA), and cerebral infarction without residual deficits; W18.09XA Striking against other object with subsequent fall, initial encounter
CPT/HCPCS: 99283; A9270-GY

== ENCOUNTER 2022-03-07 12:56 | Emergency (ER) | payer MEDICARE, BC ==
[2022-03-07 13:03] VITALS: PULSE 90
[2022-03-07] MEDS: ceFAZolin 2 GM Vial IVPUSH ONE (14:16)
[2022-03-07] MEDS: Lidocaine 1% 30 ML SDV INJECT ONE (14:16)
[2022-03-07] MEDS: Bacitracin Oint 28.35 GM Tube TOP ONE (14:34)
[2022-03-07] MEDS: Bacitracin/Neomycin/Polymyxin B Oint 0.9 GM U/D Packet TOP ONE (14:35)
[2022-03-07 15:05] VITALS: BP 157/92
== END 2022-03-07 14:59 | disposition home or self-care (01) ==
LOC: CC.ED 12:56
DX: S61.412A Laceration without foreign body of left hand, initial encounter (principal); E78.00 Pure hypercholesterolemia, unspecified; K21.9 Gastro-esophageal reflux disease without esophagitis; E11.9 Type 2 diabetes mellitus without complications; Z86.73 Personal history of transient ischemic attack (TIA), and cerebral infarction without residual deficits; Z79.82 Long term (current) use of aspirin; Z79.02 Long term (current) use of antithrombotics/antiplatelets; Z79.899 Other long term (current) drug therapy; Z79.84 Long term (current) use of oral hypoglycemic drugs; W27.0XXA Contact with workbench tool, initial encounter; Y99.0 Civilian activity done for income or pay
CPT/HCPCS: 12002; 73140-FA; 96374; 99283-25; A9270-GY; J0690

== ENCOUNTER 2022-11-09 16:44 | Emergency (ER) | payer MEDICARE, BC ==
[2022-11-09] MEDS: Lidocaine 1% 5 ML VIAL INJECT ONE (19:45)
[2022-11-09] MEDS: Amoxicillin/Clavulanate K 875-125 MG Tab PO ONE (20:32)
[2022-11-10 05:18] VITALS: BP 125/75; PULSE 77
== END 2022-11-09 20:55 | disposition home or self-care (01) ==
LOC: CC.ED 16:44
DX: S61.213A Laceration without foreign body of left middle finger without damage to nail, initial encounter (principal); E78.00 Pure hypercholesterolemia, unspecified; K21.9 Gastro-esophageal reflux disease without esophagitis; E11.9 Type 2 diabetes mellitus without complications; Z86.73 Personal history of transient ischemic attack (TIA), and cerebral infarction without residual deficits; Z79.82 Long term (current) use of aspirin; Z79.84 Long term (current) use of oral hypoglycemic drugs; Z79.899 Other long term (current) drug therapy; W31.2XXA Contact with powered woodworking and forming machines, initial encounter
CPT/HCPCS: 12002; 73140-F2; 99283; A9270-GY; J3490

== ENCOUNTER 2024-05-19 18:40 | Emergency (ER) | payer MEDICARE, BC ==
[2024-05-19 18:30] LABS: BASOPHILS ABSOLUTE AUTO 0.04 10^3/uL (0.00-0.50); BASOPHILS PERCENT AUTO 0.6 % (0-1); EOSINOPHILS ABSOLUTE AUTO 0.12 10^3/uL (0.00-1.50); EOSINOPHILS PERCENT AUTO 1.8 % (0-6); HEMATOCRIT 43.6 % (42.0-52.0); HEMOGLOBIN 14.9 g/dL (14.0-18.0); IMMATURE GRAN ABSOLUTE AUTO 0.03 10^3/uL (0.00-0.49); IMMATURE GRAN PERCENT AUTO 0.5 % (0.0-4.9); LYMPHOCYTES ABSOLUTE AUTO 2.53 10^3/uL (0.60-5.00); LYMPHOCYTES PERCENT AUTO 38.9 % (24-44); MEAN CORPUSCULAR HEMOGLOBIN 32.2 pg (27.0-32.0); MEAN CORPUSCULAR HGB CONC 34.2 g/dL (32.0-36.0); MEAN CORPUSCULAR VOLUME 94.2 fL (83.0-97.0); MONOCYTES ABSOLUTE AUTO 0.72 10^3/uL (0.00-1.50); MONOCYTES PERCENT AUTO 11.1 % (0-10); NEUTROPHILS ABSOLUTE AUTO 3.06 x10^3/uL (1.80-8.00); NEUTROPHILS PERCENT AUTO 47.1 % (41-71); PLATELET COUNT,PLT 183 10^3/uL (150-400); RED BLOOD CELL COUNT 4.63 x10^6/uL (4.50-6.00); WHITE BLOOD CELL COUNT,WBC 6.5 10^3/uL (4.0-11.0)
[2024-05-19] MEDS: Ondansetron 4 MG/2 ML SDV IVPUSH PRN (18:30)
[2024-05-19 18:51] LABS: ALANINE AMINOTRANSFERASE,ALT 29 U/L (12-78); ALBUMIN 3.8 g/dL (3.4-5.0); ALKALINE PHOSPHATASE 99 U/L (46-116); ASPARTATE AMNIOTRANSFERASE,AST 25 U/L (15-37); BILIRUBIN TOTAL 0.4 mg/dL (0.0-1.0); BLOOD UREA NITROGEN,BUN 16 mg/dL (7-18); CALCIUM 9.3 mg/dL (8.4-10.1); CARBON DIOXIDE,CO2 23 mmol/L (21-32); CHLORIDE,CL 104 mEq/L (98-106); CREATININE 1.2 mg/dL (0.7-1.3); GLUCOSE RANDOM 185 mg/dL (75-99); MAGNESIUM 1.8 mg/dL (1.8-2.4); PRO B-TYPE NATRIUR PEPT,BNPPRO 87 pg/mL (0-1000); PROTEIN TOTAL,TP 7.1 g/dL (6.4-8.2); SODIUM,NA 139 mEq/L (136-145)
[2024-05-19 18:52] LABS: ESTIMATED GFR 64 mL/min (>=60)
[2024-05-19 19:11] LABS: APPEARANCE,URINE CLEAR (CLEAR); BILIRUBIN,URINE NEGATIVE (NEGATIVE); COLOR,URINE YELLOW (YELLOW); GLUCOSE,URINE NEGATIVE (NEGATIVE); KETONES,URINE NEGATIVE (NEGATIVE); LEUKOCYTE ESTERASE,URINE NEGATIVE (NEGATIVE); NITRITE,URINE NEGATIVE (NEGATIVE); OCCULT BLOOD,URINE NEGATIVE (NEGATIVE); PROTEIN,URINE NEGATIVE (NEGATIVE); UROBILINOGEN,URINE 0.2 EU/dL (0.2-1.0)
[2024-05-19 19:26] VITALS: BP 183/95; PULSE 85
[2024-05-19] MEDS: Iopamidol 755 Mg/ML 100 ML Bottle IVPUSH ONE (20:03)
[2024-05-19] MEDS: Aspirin 325 MG Tab PO ONE (21:34)
== END 2024-05-19 22:42 ==
LOC: CC.ED 18:40
DX: R42 Dizziness and giddiness (principal); Z86.73 Personal history of transient ischemic attack (TIA), and cerebral infarction without residual deficits; E11.9 Type 2 diabetes mellitus without complications; K21.9 Gastro-esophageal reflux disease without esophagitis; E78.00 Pure hypercholesterolemia, unspecified; Z90.49 Acquired absence of other specified parts of digestive tract; Z79.899 Other long term (current) drug therapy
CPT/HCPCS: 36415; 70450; 70496; 70498; 71045; 80053; 81003; 83735; 83880; 84484; 85025; 85730; 93005; 93010; 96374; 99284; 99285-25; A9270-GY; J2405; Q9967